=== PATIENT | male | born 1945 | race American Indian/Alaskan Native ===

== ENCOUNTER 2017-11-27 13:05 | Emergency (ER) | payer MEDICARE ==
[2017-11-27 14:17] VITALS: BP 159/64
[2017-11-27] MEDS ORDERED: BOOSTRIX IM ONE (15:11)
--- NOTE | 2017-11-27 15:11 | Emergency Department Report ---
- General Chief complaint: Wound/Laceration Stated complaint: SORE/ULCER Time Seen by Provider: 11/27/17 14:49 Source: patient Mode of arrival: Ambulatory Limitations: No Limitations - History of Present Illness Initial comments: This is a 72-year-old male nontoxic, well nourished in appearance, no acute signs of distress presents to the ED with c/o of left lower leg redness with pain. Patient stated that he is a insect bite occurred and patient developed this. Patient denies any fever, chills, nausea, vomiting, chest pain, shortness of breath, headache, stiff neck, body aches. Patient that he is not up-to-date with tetanus. Denies any swelling, pus or drainage. Denies any allergies. MD complaint: insect bite/sting -: days(s) (3) Tetanus Up to Date: no Severity: mild Severity scale (0 -10): 3 Quality: aching Consistency: constant Improves with: none Worsens with: none Associated symptoms: denies other symptoms Treatments Prior to Arrival: none - Related Data Home Medications Medication Instructions Recorded Confirmed Last Taken Aspirin EC [Aspirin Enteric Coated 325 mg PO QDAY 12/29/14 12/29/14 12/29/14 TAB] 325mg Lisinopril 40 mg PO DAILY 12/29/14 12/29/14 12/27/14 40mg Metformin HCl [Metformin] 1,000 mg PO BID 12/29/14 12/29/14 12/27/14 1000mg Metoprolol Tartrate 25 mg PO DAILY 12/29/14 12/29/14 12/26/14 25mg Simvastatin 40 mg PO QHS 12/29/14 12/29/14 12/26/14 40mg Previous Rx's Medication Instructions Recorded Last Taken Type Ibuprofen [Motrin] 600 mg PO Q8H PRN #30 tablet 11/27/17 Unknown Rx Sulfamethoxazole/Trimethoprim 1 each PO BID #14 tablet 11/27/17 Unknown Rx [Bactrim DS TAB] Allergies Allergy/AdvReac Type Severity Reaction Status Date / Time No Known Allergies Allergy Verified 12/29/14 06:21 Abscess Boil HPI - HPI Chief Complaint: Wound/Laceration Stated Complaint: SORE/ULCER Time Seen by Provider: 11/27/17 14:49 Home Medications: Home Medications Medication Instructions Recorded Confirmed Last Taken Aspirin EC [Aspirin Enteric Coated 325 mg PO QDAY 12/29/14 12/29/14 12/29/14 TAB] 325mg Lisinopril 40 mg PO DAILY 12/29/14 12/29/14 12/27/14 40mg Metformin HCl [Metformin] 1,000 mg PO BID 12/29/14 12/29/14 12/27/14 1000mg Metoprolol Tartrate 25 mg PO DAILY 12/29/14 12/29/14 12/26/14 25mg Simvastatin 40 mg PO QHS 12/29/14 12/29/14 12/26/14 40mg Previous Rx's Medication Instructions Recorded Last Taken Type Ibuprofen [Motrin] 600 mg PO Q8H PRN #30 tablet 11/27/17 Unknown Rx Sulfamethoxazole/Trimethoprim 1 each PO BID #14 tablet 11/27/17 Unknown Rx [Bactrim DS TAB] Allergies/Adverse Reactions: Allergies Allergy/AdvReac Type Severity Reaction Status Date / Time No Known Allergies Allergy Verified 12/29/14 06:21 ED Review of Systems ROS: Stated complaint: SORE/ULCER Other details as noted in HPI Constitutional: denies: chills, fever Eyes: denies: eye pain, eye discharge, vision change ENT: denies: ear pain, throat pain Respiratory: denies: cough, shortness of breath, wheezing Cardiovascular: denies: chest pain, palpitations Endocrine: no symptoms reported Gastrointestinal: denies: abdominal pain, nausea, diarrhea Genitourinary: denies: urgency, dysuria Musculoskeletal: denies: back pain, joint swelling, arthralgia Skin: denies: rash, lesions Neurological: denies: headache, weakness, paresthesias Psychiatric: denies: anxiety, depression Hematological/Lymphatic: denies: easy bleeding, easy bruising ED Past Medical Hx - Past Medical History Previous Medical History?: Yes Hx Hypertension: Yes - Surgical History Past Surgical History?: Yes Hx Coronary Stent: Yes (2003) Hx Open Heart Surgery: Yes Additional Surgical History: inguinal hernia repair - Social History Smoking Status: Former Smoker Substance Use Type: Marijuana - Medications Home Medications: Home Medications Medication Instructions Recorded Confirmed Last Taken Type Aspirin EC [Aspirin Enteric Coated 325 mg PO QDAY 12/29/14 12/29/14 12/29/14 History TAB] 325mg Lisinopril 40 mg PO DAILY 12/29/14 12/29/14 12/27/14 History 40mg Metformin HCl [Metformin] 1,000 mg PO BID 12/29/14 12/29/14 12/27/14 History 1000mg Metoprolol Tartrate 25 mg PO DAILY 12/29/14 12/29/14 12/26/14 History 25mg Simvastatin 40 mg PO QHS 12/29/14 12/29/14 12/26/14 History 40mg Ibuprofen [Motrin] 600 mg PO Q8H PRN #30 tablet 11/27/17 Unknown Rx Sulfamethoxazole/Trimethoprim 1 each PO BID #14 tablet 11/27/17 Unknown Rx [Bactrim DS TAB] ED Physical Exam - General Limitations: No Limitations General appearance: alert, in no apparent distress - Head Head exam: Present: atraumatic, normocephalic - Eye Eye exam: Present: normal appearance - ENT ENT exam: Present: mucous membranes moist - Neck Neck exam: Present: normal inspection - Respiratory Respiratory exam: Present: normal lung sounds bilaterally. Absent: respiratory distress - Cardiovascular Cardiovascular Exam: Present: regular rate, normal rhythm. Absent: systolic murmur, diastolic murmur, rubs, gallop - GI/Abdominal GI/Abdominal exam: Present: soft, normal bowel sounds - Rectal Rectal exam: Present: deferred - Extremities Exam Extremities exam: Present: normal inspection, full ROM, tenderness, normal capillary refill. Absent: joint swelling - Expanded Lower Extremity Exam Left Hip exam: Present: normal inspection, full ROM. Absent: tenderness, swelling Upper Leg exam: Present: normal inspection, full ROM. Absent: tenderness, swelling Knee exam: Present: normal inspection, full ROM. Absent: tenderness, swelling Lower Leg exam: Present: normal inspection, full ROM, tenderness, erythema. Absent: swelling, abrasion, laceration, ecchymosis, deformity, crepidus, dislocation, palpable cord, Rogers's sign Ankle exam: Present: normal inspection, full ROM. Absent: tenderness, swelling Foot/Toe exam: Present: normal inspection, full ROM. Absent: tenderness, swelling Neuro vascular tendon exam: Present: no vascular compromise. Absent: pulse deficit, abnormal cap refill, motor deficit, sensory deficit, tendon deficit, extremity cold to touch, pallor, abnormal 2-point discrimination, decreased fine /light touch, foot drop, peroneal nerve deficit, significant pain with passive ROM of distal joint Gait: Positive: observed and limited by pain 1 - 1 cm circular redness with tenderness to touch. No signs of pus or drainage. - Back Exam Back exam: Present: normal inspection - Neurological Exam Neurological exam: Present: alert, oriented X3 - Psychiatric Psychiatric exam: Present: normal affect, normal mood - Skin Skin exam: Present: warm, dry, intact, normal color. Absent: rash ED Course Vital Signs 11/27/17 14:13 Temperature 98 F Pulse Rate 65 Respiratory 18 Rate Blood Pressure 159/64 O2 Sat by Pulse 99 Oximetry - Reevaluation(s) Reevaluation #1: 11/27/17 15:12 Patient is speaking in full sentences with no signs of distress noted. ED Medical Decision Making - Medical Decision Making This is a 72-year-old male that presents with cellulitis. Patient is stable and was examined by me. There is no induration, fluctuance. No signs of abscess formation. The area has been outlined with a permanent marker and patient was instructed to observe symptoms of increased redness or swelling and to return to the ER if this does occur. I will discharge patient with Bactrim. Patient did receive a tetanus booster in the ER. Patient was referred to Follow-up with a primary care doctor in 3-5 days or if symptoms worsen and continue return to emergency room as soon as possible. At time of discharge, the patient does not seem toxic or ill in appearance. No acute signs of distress noted. Patient agrees to discharge treatment plan of care. No further questions noted by the patient. Critical care attestation.: If time is entered above; I have spent that time in minutes in the direct care of this critically ill patient, excluding procedure time. ED Disposition Clinical Impression: Cellulitis Qualifiers: Site of cellulitis: extremity Site of cellulitis of extremity: lower extremity Laterality: left Qualified Code(s): L03.116 - Cellulitis of left lower limb Disposition: - TO HOME OR SELFCARE Is pt being admited?: No Does the pt Need Aspirin: No Condition: Stable Instructions: Cellulitis (ED) Additional Instructions: Follow-up with a primary care doctor in 3-5 days or if symptoms worsen and continue return to emergency room as soon as possible. Prescriptions: Ibuprofen [Motrin] 600 mg PO Q8H PRN #30 tablet PRN Reason: Pain Sulfamethoxazole/Trimethoprim [Bactrim DS TAB] 1 each PO BID #14 tablet Referrals: PRIMARY CARE, [Primary Care Provider] - 3-5 Days ROGER COFFEY MD [Staff Physician] - 3-5 Days [facility] [Outside] - 3-5 Days [facility] [Outside] - 3-5 Days Forms: Work/School Release Form(ED)
== END 2017-11-27 15:34 | disposition home or self-care (01) ==
LOC: ED 13:05
DX: S80.862A Insect bite (nonvenomous), left lower leg, initial encounter (principal); L03.116 Cellulitis of left lower limb; I10 Essential (primary) hypertension; F12.10 Cannabis abuse, uncomplicated; Z87.891 Personal history of nicotine dependence; Z79.82 Long term (current) use of aspirin
CPT/HCPCS: 90471; 90715; 99282

== ENCOUNTER 2018-07-10 03:49 | Emergency (ER) | payer MEDICARE ==
[2018-07-10] MEDS ORDERED: CATAPRES PO ONE (04:32)
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
[2018-07-10 05:21] VITALS: BP 161/81
== END 2018-07-10 05:38 | disposition home or self-care (01) ==
LOC: ED 03:49
DX: T21.25XA Burn of second degree of buttock, initial encounter (principal); T65.91XA Toxic effect of unspecified substance, accidental (unintentional), initial encounter; T21.65XA Corrosion of second degree of buttock, initial encounter; I10 Essential (primary) hypertension; E11.9 Type 2 diabetes mellitus without complications; Z79.84 Long term (current) use of oral hypoglycemic drugs; Z87.891 Personal history of nicotine dependence; Z87.74 Personal history of (corrected) congenital malformations of heart and circulatory system; Y93.89 Activity, other specified; Y92.89 Other specified places as the place of occurrence of the external cause; Y99.8 Other external cause status

== ENCOUNTER 2018-10-23 01:59 | Emergency (ER) | payer MEDICARE ==
[2018-10-23] MEDS ORDERED: DECADRON IM ONE (04:53)
[2018-10-23] MEDS ORDERED: TORADOL IM ONE (04:53)
--- NOTE | 2018-10-23 04:59 | Emergency Department Report ---
ED Extremity Problem HPI - General Chief complaint: Extremity Injury, Lower Stated complaint: RT LEG PAIN Source: patient Mode of arrival: Ambulatory Limitations: No Limitations - History of Present Illness Initial comments: 73-year-old male presents to ED with complaint of sciatica pain. Patient states he was diagnosed with sciatica one month ago by his PCP. States pain originates in the right buttocks, radiates down the entire leg and also around into the groin. Patient denies any leg swelling. Reports associated intermittent numbness of the toes. There is pain is worse when going from sitting to standing, also worse with walking. Pain is better with laying down. Patient states medications given to him by his PCP are not helping (meloxicam, flexeril, ibuprofen). States he has a follow-up appointment October 31. Patient denies any urinary or bowel incontinence, denies any leg weakness. MD Complaint: extremity pain -: month(s) (1) Location: right, lower extremity Radiation: distal Quality: sharp Consistency: intermittent Improves with: immobilization, rest Worsens with: walking Associated Symptoms: denies: chest pain, shortness of breath, fever - Related Data Home Medications Medication Instructions Recorded Confirmed Last Taken Aspirin EC 325 mg PO QDAY 12/29/14 12/29/14 12/29/14 325mg Lisinopril 40 mg PO DAILY 12/29/14 12/29/14 12/27/14 40mg Metformin HCl [Metformin] 1,000 mg PO BID 12/29/14 12/29/14 12/27/14 1000mg Metoprolol Tartrate 25 mg PO DAILY 12/29/14 12/29/14 12/26/14 25mg Simvastatin 40 mg PO QHS 12/29/14 12/29/14 12/26/14 40mg Previous Rx's Medication Instructions Recorded Last Taken Type Ibuprofen [Motrin] 600 mg PO Q8H PRN #30 tablet 11/27/17 Unknown Rx Sulfamethoxazole/Trimethoprim 1 each PO BID #14 tablet 11/27/17 Unknown Rx [Bactrim DS TAB] Silver Sulfadiazine [Silvadene] 20 gm TP BID #20 cream..g. 07/10/18 Unknown Rx cephALEXin [Keflex] 500 mg PO Q8HR #30 cap 07/10/18 Unknown Rx methOCARBAMOL [Robaxin TAB] 500 mg PO Q8HR PRN #20 tablet 10/23/18 Unknown Rx predniSONE [Deltasone] 50 mg PO QDAY #5 tab 10/23/18 Unknown Rx traMADol [Ultram] 50 mg PO Q6HR PRN #7 tablet 10/23/18 Unknown Rx Allergies Allergy/AdvReac Type Severity Reaction Status Date / Time No Known Allergies Allergy Verified 12/29/14 06:21 ED Review of Systems ROS: Stated complaint: RT LEG PAIN Other details as noted in HPI Comment: All other systems reviewed and negative Constitutional: denies: chills, fever Respiratory: denies: shortness of breath Cardiovascular: denies: chest pain Genitourinary: other (denies incontinence) Musculoskeletal: as per HPI. denies: back pain Neurological: paresthesias ED Past Medical Hx - Past Medical History Previous Medical History?: Yes Hx Hypertension: Yes Hx Diabetes: Yes - Surgical History Past Surgical History?: Yes Hx Coronary Stent: Yes (2003) Hx Open Heart Surgery: Yes (tripple bypass) Additional Surgical History: inguinal hernia repair - Social History Smoking Status: Never Smoker Substance Use Type: Alcohol - Medications Home Medications: Home Medications Medication Instructions Recorded Confirmed Last Taken Type Aspirin EC 325 mg PO QDAY 12/29/14 12/29/14 12/29/14 History 325mg Lisinopril 40 mg PO DAILY 12/29/14 12/29/14 12/27/14 History 40mg Metformin HCl [Metformin] 1,000 mg PO BID 12/29/14 12/29/14 12/27/14 History 1000mg Metoprolol Tartrate 25 mg PO DAILY 12/29/14 12/29/14 12/26/14 History 25mg Simvastatin 40 mg PO QHS 12/29/14 12/29/14 12/26/14 History 40mg Ibuprofen [Motrin] 600 mg PO Q8H PRN #30 tablet 11/27/17 Unknown Rx Sulfamethoxazole/Trimethoprim 1 each PO BID #14 tablet 11/27/17 Unknown Rx [Bactrim DS TAB] Silver Sulfadiazine [Silvadene] 20 gm TP BID #20 cream..g. 07/10/18 Unknown Rx cephALEXin [Keflex] 500 mg PO Q8HR #30 cap 07/10/18 Unknown Rx methOCARBAMOL [Robaxin TAB] 500 mg PO Q8HR PRN #20 tablet 10/23/18 Unknown Rx predniSONE [Deltasone] 50 mg PO QDAY #5 tab 10/23/18 Unknown Rx traMADol [Ultram] 50 mg PO Q6HR PRN #7 tablet 10/23/18 Unknown Rx ED Physical Exam - General Limitations: No Limitations General appearance: alert, in no apparent distress - Head Head exam: Present: atraumatic, normocephalic - Eye Eye exam: Present: normal appearance - ENT ENT exam: Present: mucous membranes moist - Neck Neck exam: Present: normal inspection - Respiratory Respiratory exam: Present: normal lung sounds bilaterally. Absent: respiratory distress - Cardiovascular Cardiovascular Exam: Present: regular rate, normal rhythm - GI/Abdominal GI/Abdominal exam: Present: soft. Absent: distended, tenderness - Extremities Exam Extremities exam: Present: other (tenderness in the right sciatic notch; positive straight leg raise on the right). Absent: pedal edema, calf tenderness - Neurological Exam Neurological exam: Present: alert, oriented X3 - Psychiatric Psychiatric exam: Present: normal affect, normal mood - Skin Skin exam: Present: warm, dry, intact, normal color ED Course Vital Signs 10/23/18 02:06 Temperature 97.4 F L Pulse Rate 79 Respiratory 14 Rate Blood Pressure 205/100 O2 Sat by Pulse 100 Oximetry Critical care attestation.: If time is entered above; I have spent that time in minutes in the direct care of this critically ill patient, excluding procedure time. ED Disposition Clinical Impression: Sciatica Disposition: DC-01 TO HOME OR SELFCARE Is pt being admited?: No Condition: Stable Instructions: Lumbar Radiculopathy (ED) Prescriptions: predniSONE [Deltasone] 50 mg PO QDAY #5 tab methOCARBAMOL [Robaxin TAB] 500 mg PO Q8HR PRN #20 tablet PRN Reason: Muscle Spasm traMADol [Ultram] 50 mg PO Q6HR PRN #7 tablet PRN Reason: Pain Referrals: CARMENCITA BARBOUR MD [Staff Physician] - 3-5 Days PRIMARY CAREMD [Referring] - 3-5 Days Time of Disposition: 05:02
[2018-10-23 07:03] VITALS: BP 135/82
== END 2018-10-23 07:03 | disposition home or self-care (01) ==
LOC: ED 01:59
DX: M54.40 Lumbago with sciatica, unspecified side (principal); I10 Essential (primary) hypertension; E11.9 Type 2 diabetes mellitus without complications
CPT/HCPCS: 96372; 99282; J1100; J1885

== ENCOUNTER 2021-01-16 09:48 | Outpatient (CLI) | payer MEDICARE ==
[~2021-01-16 09:48] MED LIST: REGADENOSON 0.4 MG/5 ML INJ IV ONE
[2021-01-16] MEDS ORDERED: REGADENOSON 0.4 MG/5 ML INJ IV ONE (11:17)
--- NOTE | 2021-01-17 17:31 | Treadmill Report ---
DATE OF SERVICE: 01/16/2021 NUCLEAR PERFUSION SCAN REFERRING PHYSICIAN: Dr. Nuñez. PROTOCOL: The patient was assessed in postoperative state, given 10 mCi of technetium at rest. The patient had rest imaging. The patient underwent Lexiscan stress test per standard protocol. At peak stress, the patient given 26 mCi technetium. Shortly thereafter, the patient had stress imaging. Raw imaging reveals mild GI artifact, no significant motion effect. SPECT imaging examined carefully in horizontal long axis, vertical long axis, short axis views. There is normal homogeneous uptake of radioisotope in all port segments. There is a moderate-sized fixed lateral defect with edmond-infarct ischemia. Low normal LV function at 45%. No TID. CONCLUSIONS: 1. Abnormal nuclear stress test with a moderate-sized, mostly fixed lateral wall defect, questionable prior NH with edmond-infarct ischemia. 2. Mild LV dysfunction with calculated ejection fraction of 45%. 3. Clinical correlation is suggested. TID: [id number] RECEIPT: [id number] NII/VIVIAN/DICK
== END 2021-01-16 09:49 | disposition home or self-care (01) ==
LOC: CARD 09:48
PROVIDERS: ATTEND Internal Medicine Cardiovascular Disease
DX: I25.10 Atherosclerotic heart disease of native coronary artery without angina pectoris (principal); R06.00 Dyspnea, unspecified; I10 Essential (primary) hypertension; Z95.1 Presence of aortocoronary bypass graft
CPT/HCPCS: 78452; 93017; A9502; J2785

== ENCOUNTER 2021-02-14 08:23 | Outpatient (CLI) | payer MEDICARE, MEDICAID ==
[2021-02-14 08:59] LABS: ABG Base Excess -3.2 mmol/L (-2.0-3.0); ABG HCO3 18.8 mmol/L (20.0-26.0); ABG Methemoglobin 0.3 % (0.0-1.5); ABG Oxygen Saturation 98.1 % (95.0-99.0); ABG PCO2 26.4 mm Hg; ABG PH 7.469 pH Units (7.350-7.450); ABG PO2 106.7 mm Hg (80.0-90.0)
[2021-02-14 09:19] LABS: Hematocrit 39.8 % (35.5-45.6); Hemoglobin 12.5 gm/dl (11.8-15.2); Mean Corpuscular HGB Conc 32 % (32-34); Mean Corpuscular Volume 97 fl (84-94); Platelet Count 164 K/mm3 (140-440); Red Blood Count 4.12 M/mm3 (3.65-5.03); Red Cell Distribution Width 16.4 % (13.2-15.2)
--- NOTE | 2021-02-14 09:33 | XRay Report ---
CHEST 2 VIEWS INDICATION / CLINICAL INFORMATION: Shortness of breath, heart failure.. COMPARISON: None available. FINDINGS: SUPPORT DEVICES: None. HEART / MEDIASTINUM: No significant abnormality. LUNGS / PLEURA: No significant pulmonary or pleural abnormality. No pneumothorax. ADDITIONAL FINDINGS: Postsurgical changes following median sternotomy and suspected coronary artery b ypass surgery. IMPRESSION: 1. No acute findings. Signer Name: Javier King MD Signed: 02/14/2021 9:28 AM Workstation Name: [id number]
[2021-02-14 09:43] LABS: Alanine Aminotransferase 67 units/L (7-56); Albumin 4.2 g/dL (3.9-5); BUN/Creatinine Ratio 19; Blood Urea Nitrogen 17 mg/dL (9-20); Calcium 9.1 mg/dL (8.4-10.2); Chol/HDL Ratio 3.25 %; HDL Cholesterol 58 mg/dL (40-59); Hemolysis Index 6; LDL Cholesterol,Direct 129 mg/dL (50-130)
--- NOTE | 2021-02-14 10:28 | Cat Scan Report ---
CT chest with contrast INDICATION : Shortest of breath. TECHNIQUE: 100 mL of intravenous contrast administered. All CT scans at this location are performed using CT dose reduction for ALARA by means of automated exposure control. COMPARISON: Chest radiograph performed earlier the same day. FINDINGS: Filling defects within the segmental bilateral lower lobes and left upper lobe pulmonary arteries are compatible with pulmonary emboli. There is a 7 mm right upper lobe pulmonary nodule. No focal pulmonary consolidation or edema. Slight flattening of the interventricular septum which can be seen in the setting of right heart stra in. Postsurgical changes following coronary artery bypass graft surgery. No evidence of pericardial e ffusion. No mediastinal or axillary lymphadenopathy. Osseous structures show no evidence acute fracture or aggressive osseous destructive lesion. Limited evaluation of the upper abdomen is unremarkable, aside from a partially visualized left upper pole renal cyst.. IMPRESSION: Segmental pulmonary emboli within the bilateral lower lobes and left upper lobe. There is a 7 mm right upper lobe pulmonary nodule. Recommend follow-up CT in 6-12 months. These findings and recommendations were discussed with Dr. Ramey at 09:22 on 02/14/2021. Signer Name: Javier King MD Signed: 02/14/2021 10:23 AM Workstation Name: [id number]
== END 2021-02-14 08:24 | disposition home or self-care (01) ==
LOC: CT 08:23
PROVIDERS: ATTEND Internal Medicine
DX: R91.1 Solitary pulmonary nodule (principal); I50.9 Heart failure, unspecified; I51.9 Heart disease, unspecified; E11.9 Type 2 diabetes mellitus without complications; K21.9 Gastro-esophageal reflux disease without esophagitis; I11.0 Hypertensive heart disease with heart failure; N28.1 Cyst of kidney, acquired
CPT/HCPCS: 36415; 71046; 71275; 80053; 80061; 82803; 82962; 84436; 84443; 85027; Q9967

== ENCOUNTER 2021-10-01 04:29 | Emergency (ER) | payer MEDICARE ==
--- NOTE | 2021-10-01 06:41 | XRay Report ---
ABDOMEN 2 VIEWS INDICATION / CLINICAL INFORMATION: Abdominal pain for 3 days. COMPARISON: None available. FINDINGS: TUBES / LINES: None. BOWEL GAS PATTERN: The colon contains a large amount of stool. No significant bowel dilatation. FREE AIR / EXTRALUMINAL GAS: None seen. ADDITIONAL FINDINGS: No significant additional findings. CHEST: Visualized chest shows no significant abnormality. IMPRESSION: Findings suggestive of constipation without other acute findings. Signer Name: Redd Quintana MD Signed: 10/01/2021 6:36 AM Workstation Name: [id number]
[2021-10-01 07:33] LABS: Basophils # (Auto) 0.1 K/mm3 (0.0-0.1); Basophils % (Auto) 1.2 % (0.0-1.8); Eosinophils # (Auto) 0.1 K/mm3 (0.0-0.4); Eosinophils % (Auto) 1.7 % (0.0-4.3); Hematocrit 45.5 % (35.5-45.6); Hemoglobin 15.2 gm/dl (11.8-15.2); Lymphocytes % (Auto) 38.1 % (13.4-35.0); Mean Corpuscular HGB Conc 33 % (32-34); Mean Corpuscular Volume 90 fl (84-94); Monocytes # (Auto) 0.4 K/mm3 (0.0-0.8); Monocytes % (Auto) 8.2 % (0.0-7.3); Platelet Count 127 K/mm3 (140-440); Red Blood Count 5.05 M/mm3 (3.65-5.03)
[2021-10-01] MEDS ORDERED: PANTOPRAZOLE 40 MG TAB PO ONE (11:31)
[2021-10-01] MEDS ORDERED: ACETAMINOPHEN 325 MG TAB PO ONE (11:31)
[2021-10-01] MEDS ORDERED: METOCLOPRAMIDE 10 MG TAB PO ONE (11:31)
--- NOTE | 2021-10-01 11:33 | Emergency Department Report ---
ED General Adult HPI - General Chief complaint: Pain General Stated complaint: Body is burning Time Seen by Provider: 10/01/21 11:16 Source: patient, RN notes reviewed, old records reviewed Mode of arrival: Wheelchair Limitations: No Limitations - History of Present Illness Initial comments: The patient was evaluated in the emergency department for symptoms described in the history of present illness. He/she was evaluated in the context of the global COVID-19 pandemic, which necessitated consideration that the patient might be at risk for infection with the virus that causes COVID-19. Institutional protocols and algorithms that pertain to the evaluation of patients at risk for COVID-19 are in a state of rapid change based on information released by regulatory bodies including the CDC and federal and state organizations. These policies and algorithms were followed during the patient's care in the emergency department. Please note that these policies, procedures and recommendations changed on a rapid basis. This is a 76-year-old gentleman who presents to the department today with family member, with a complaint of total body pain and burning, which has been present for weeks. He endorses a mild headache, which is not sudden or thunderclap in nature, not maximal in intensity, not described as the worst headache of the life. The headache is not associated with visual loss, temporal pain, or jaw claudication. Patient denies new/different cough, anterior chest pain, shortness of breath, and denies vomiting, diaphoresis. He denies hematemesis and bright red blood per rectum. He endorsed nonspecific abdominal cramping, and burning aching pain in his upper and lower extremity joints. Current medications include Flomax, finasteride, omeprazole, lisinopril, metoprolol, pravastatin, insulin The patient's past medical history is significant for type 2 diabetes, hypertension, hyperlipidemia, prostate/bladder problems, GERD, on PPI, remote CABG, with CAD. Also has had issues with anorexia since 2020, and has been followed up by outpatient GI. Also has a history of pulmonary embolism, for which he was treated with 3 months of anticoagulation. -: Gradual, days(s), week(s), month(s) Location: head, abdomen, left, right, upper extremity, lower extremity Quality: other (For history of present) Consistency: other (Per history of present illness) Improves with: other (Patient does not describe improving factors) Worsens with: other (Does not describe exacerbating factors) - Related Data Home Medications Medication Instructions Recorded Confirmed Last Taken lisinopriL [Lisinopril] 40 mg PO DAILY 12/29/14 02/14/21 02/14/21 08:00 Insulin NPH/Regular [NovoLIN 70/30] 15 unit SQ BIDDIAB 02/14/21 02/14/21 02/13/21 21:00 Pravastatin [Pravachol] 40 mg PO QHS 02/14/21 02/14/21 02/13/21 21:00 Amlodipine Besylate [Norvasc] 2.5 mg PO QDAY 02/15/21 02/15/21 02/14/21 08:00 Lactulose 20 gm PO QDAY 02/15/21 02/15/21 Unknown Metformin HCl [metFORMIN] 1,000 mg PO BID 02/15/21 02/15/21 Unknown Metoprolol Xl [Metoprolol 25 mg PO QDAY 02/15/21 02/15/21 Unknown SUCCINATE ER TAB] Omeprazole 40 mg PO QAM 02/15/21 02/15/21 Unknown Tamsulosin [Flomax] 0.4 mg PO QDAY 02/15/21 02/15/21 Unknown megestroL [Megestrol] 400 mg PO BID 02/15/21 02/15/21 Unknown Previous Rx's Medication Instructions Recorded Last Taken Type Apixaban [Eliquis starter pack] 5 mg PO BID #74 tab.ds.pk 02/19/21 Unknown Rx Magnesium Oxide 400 mg PO QDAY #30 tab 10/01/21 Unknown Rx polyethylene glycoL 3350 [Miralax 17 gm PO QDAY #30 packet 10/01/21 Unknown Rx 3350] Allergies Allergy/AdvReac Type Severity Reaction Status Date / Time No Known Allergies Allergy Verified 02/14/21 13:41 ED Review of Systems ROS: Stated complaint: SEVERE PAIN IN MID REGION Other details as noted in HPI Constitutional: denies: fever Eyes: denies: eye discharge ENT: denies: congestion Respiratory: denies: cough, shortness of breath Cardiovascular: denies: chest pain Gastrointestinal: abdominal pain. denies: vomiting Genitourinary: denies: dysuria Musculoskeletal: arthralgia, myalgia Neurological: headache, weakness (Chronic generalized weakness) Hematological/Lymphatic: denies: easy bleeding ED Past Medical Hx - Past Medical History Hx Hypertension: Yes Hx Congestive Heart Failure: No Hx Diabetes: Yes Hx Asthma: No Hx COPD: No - Surgical History Hx Coronary Stent: Yes (2003) Hx Open Heart Surgery: Yes (tripple bypass) Additional Surgical History: inguinal hernia repair - Social History Smoking Status: Never Smoker Substance Use Type: None - Medications Home Medications: Home Medications Medication Instructions Recorded Confirmed Last Taken Type lisinopriL [Lisinopril] 40 mg PO DAILY 12/29/14 02/14/21 02/14/21 08:00 History Insulin NPH/Regular [NovoLIN 70/30] 15 unit SQ BIDDIAB 02/14/21 02/14/21 02/13/21 21:00 History Pravastatin [Pravachol] 40 mg PO QHS 02/14/21 02/14/21 02/13/21 21:00 History Amlodipine Besylate [Norvasc] 2.5 mg PO QDAY 02/15/21 02/15/21 02/14/21 08:00 History Lactulose 20 gm PO QDAY 02/15/21 02/15/21 Unknown History Metformin HCl [metFORMIN] 1,000 mg PO BID 02/15/21 02/15/21 Unknown History Metoprolol Xl [Metoprolol 25 mg PO QDAY 02/15/21 02/15/21 Unknown History SUCCINATE ER TAB] Omeprazole 40 mg PO QAM 02/15/21 02/15/21 Unknown History Tamsulosin [Flomax] 0.4 mg PO QDAY 02/15/21 02/15/21 Unknown History megestroL [Megestrol] 400 mg PO BID 02/15/21 02/15/21 Unknown History Apixaban [Eliquis starter pack] 5 mg PO BID #74 tab.ds.pk 02/19/21 Unknown Rx Magnesium Oxide 400 mg PO QDAY #30 tab 10/01/21 Unknown Rx polyethylene glycoL 3350 [Miralax 17 gm PO QDAY #30 packet 10/01/21 Unknown Rx 3350] ED Physical Exam - General Limitations: No Limitations General appearance: alert, in no apparent distress - Head Head exam: Present: atraumatic, normocephalic, other (There is no temporal tenderness) - Eye Eye exam: Present: normal appearance, EOMI. Absent: scleral icterus, conjunctival injection, nystagmus - ENT ENT exam: Present: normal exam, normal orophraynx, mucous membranes moist, normal external ear exam - Neck Neck exam: Present: normal inspection, full ROM. Absent: tenderness, meningismus - Respiratory Respiratory exam: Present: normal lung sounds bilaterally. Absent: respiratory distress, wheezes, rales, rhonchi, stridor, decreased breath sounds - Cardiovascular Cardiovascular Exam: Present: regular rate, normal rhythm, normal heart sounds. Absent: bradycardia, tachycardia, irregular rhythm, systolic murmur, diastolic murmur, rubs, gallop - GI/Abdominal GI/Abdominal exam: Present: soft. Absent: distended, tenderness, guarding, rebound, rigid, pulsatile mass - Rectal Rectal exam: Present: deferred - Extremities Exam Extremities exam: Present: normal inspection, full ROM, normal capillary refill, other (2+ pulses noted in the bilateral upper and lower extremities. There is no palpable cord. negative Homans sign. Muscular compartments are soft. The pelvis is stable.). Absent: calf tenderness - Back Exam Back exam: Present: normal inspection. Absent: tenderness, CVA tenderness (R), CVA tenderness (L), paraspinal tenderness, vertebral tenderness - Neurological Exam Neurological exam: Present: alert, oriented X3, reflexes normal, other (No facial droop. Tongue midline. Extraocular movements intact bilaterally. Facial sensation intact to light touch in V1, V2, V3 distribution bilaterally. 5 and a 5 strength in 4 extremities. Sensation intact to light touch in 4 extremities.). Absent: motor sensory deficit - Psychiatric Psychiatric exam: Present: normal affect, normal mood - Skin Skin exam: Present: warm, dry, intact, normal color. Absent: rash ED Course Vital Signs 10/01/21 10/01/21 10/01/21 05:45 12:35 12:47 Temperature 97.8 F 98.6 F Pulse Rate 79 72 Respiratory 16 17 17 Rate Blood Pressure 178/101 Blood Pressure 202/100 [Left] O2 Sat by Pulse 100 98 98 Oximetry 10/01/21 10/01/21 13:32 16:07 Temperature 98.6 F Pulse Rate 89 72 Respiratory 20 Rate Blood Pressure Blood Pressure 177/95 [Left] O2 Sat by Pulse 98 Oximetry - Reevaluation(s) Reevaluation #1: 10/01/21 13:11 Differential diagnosis, include but not limited to: GERD, gastritis, hiatal hernia, obstruction, constipation, obstipation, AAA, volvulus, neuropathic pain Migraine headache, tension headache, cluster Assessment and plan: 76-year-old gentleman with nonspecific abdominal cramping, and nonspecific extremity discomfort, with no abdominal tenderness, rebound or guarding, no right upper quadrant tenderness, saturating well on room air, no focal pulmonary findings, do not clinically suspect pneumonia, or cholecystitis, with probable chronic neuropathic pain as well as chronic hypertension. Multiple and repeat discussions were had with patient and family member, articulating that condition does not likely represent a dangerous life-t hreatening emergency medical condition present today, and that we will likely not elucidate the etiology of the patient's presentation. I also discussed with the patient and daughter at the bedside that we will be very happy to treat his chronic symptoms, but articulated that his diagnostic work-up is unlikely to demonstrate an acutely emergent condition today. Hypertension is chronic. We will treat the patient's symptoms supportively and symptomatically. CT scan abdomen pelvis reviewed and appreciated. Do not clinically suspect pneumonia or cholecystitis. Laboratory studies pending. Urinalysis pending. Neurologic examination nonfocal, has a GCS of 15. There is no temporal pain or tenderness, no jaw claudication \However, we will obtain noncontrast CT scan of the brain. Reassess after initial data points 10/01/21 13:13 Symptoms chronic and present for days/weeks/months. EKG unchanged from prior. Troponin negative x1, acute CO is excluded. Cardiovascular risk factor profile is reviewed and appreciated, however, given duration and chronicity of symptoms, acute coronary syndrome is very unlikely 10/01/21 14:04 Laboratory studies demonstrate new onset transaminitis/hepatitis. Right upper quadrant ultrasound ordered. Acute hepatitis panel, acetaminophen level ordered. CT scan of the brain negative for acute 10/01/21 16:33 Final reassessment. Urinalysis not consistent with UTI. Right upper quadrant ultrasound negative for emergent findings. Patient is found to have transaminitis, and evidence of hepatitis C. I have had multiple and extensive discussions with patient and daughter at the bedside. Given history of GERD, hold NSAIDs. Given advanced age, poor mobility, risk of fall, hold sedating medications, such as tramadol, opioids, and gabapentin. Minimize Tylenol. Reportedly has been on gabapentin in the past as per daughter. Recommend outpatient follow-up with primary care and/or GI for transaminitis and hepatitis C. Return precautions are reviewed. All questions answered. Patient and family asking for discharge at this time ED Medical Decision Making - Lab Data Result diagrams: 10/01/21 07:13 10/01/21 11:41 Vital Signs 10/01/21 10/01/21 10/01/21 05:45 12:35 12:47 Temperature 97.8 F 98.6 F Pulse Rate 79 72 Respiratory 16 17 17 Rate Blood Pressure 178/101 Blood Pressure 202/100 [Left] O2 Sat by Pulse 100 98 98 Oximetry Lab Results 10/01/21 10/01/21 10/01/21 Range/Units 07:13 11:41 11:41 WBC 5.2 (4.5-11.0) K/mm3 RBC 5.05 H (3.65-5.03) M/mm3 Hgb 15.2 (11.8-15.2) gm/dl Hct 45.5 (35.5-45.6) % MCV 90 (84-94) fl MCH 30 (28-32) pg MCHC 33 (32-34) % RDW 15.0 (13.2-15.2) % Plt Count 127 L (140-440) K/mm3 Lymph % (Auto) 38.1 H (13.4-35.0) % [place] % (Auto) 8.2 H (0.0-7.3) % Eos % (Auto) 1.7 (0.0-4.3) % Baso % (Auto) 1.2 (0.0-1.8) % Lymph # (Auto) 2.0 (1.2-5.4) K/mm3 [place] # (Auto) 0.4 (0.0-0.8) K/mm3 Eos # (Auto) 0.1 (0.0-0.4) K/mm3 Baso # (Auto) 0.1 (0.0-0.1) K/mm3 Seg Neutrophils % 50.8 (40.0-70.0) % Seg Neutrophils # 2.6 (1.8-7.7) K/mm3 PT 15.4 H (12.2-14.9) Sec. INR 1.09 (0.87-1.13) Creatinine 0.8 (0.8-1.3) mg/dL Estimated GFR > 60 ml/min BUN/Creatinine Ratio 26 % Troponin T < 0.010 (0.00-0.029) ng/mL Albumin/Globulin Ratio 1.1 % - EKG Data -: EKG Interpreted by Ga EKG shows normal: sinus rhythm Rate: normal - EKG Data Interpretation: unchanged when compared t 10/01/21 13:06 The EKG is interpreted at 11: 36 Sinus rhythm, rate 66 bpm. Normal axis, normal P wave axis, motion artifact, QTC 4 6 9 ms. This is an abnormal EKG. This is not a STEMI. 10/01/21 13:06 The EKG today appears to be unchanged from prior EKG from February 2021 - Radiology Data Radiology results: pending, report reviewed, image reviewed CT ABDOMEN AND PELVIS WITHOUT CONTRAST, 10/01/2021 INDICATION: Epigastric pain TECHNICAL: Multiple axial CT images of the abdomen and pelvis were acquired without intravenous contrast. Sagittal and coronal reformats were obtained. All CTs at this facility utilize dose reduction techniques including automated exposure control, iterative reconstruction and weight based dosing when appropriate to reduce patient radiation dose to as low as reasonable achievable. COMPARISON: No relevant prior studies are available for comparison. FINDINGS: Lung bases: Limited imaging of the bilateral lung bases demonstrates a 1.4 cm focal area of groundglass opacity at the right medial lung base. ABDOMEN: LIVER/BILE DUCTS: No significant abnormality. GALL BLADDER: The gallbladder is mildly distended without definitive wall thickening or pericholecystic fluid. STOMACH: No significant abnormality. PANCREAS: No significant abnormality. SPLEEN: No significant abnormality. ADRENALS: No significant abnormality. RIGHT KIDNEY / URETER: No significant abnormality. LEFT KIDNEY / URETER: There is a 3.3 cm cyst in the upper pole of the left kidney. AORTA: The abdominal aorta is moderately calcified and ectatic measuring a maximum of 2.8 cm without evidence for aneurysm. SMALL AND LARGE BOWEL: No significant abnormality. APPENDIX: The appendix is visualized and appears normal. PELVIS: REPRODUCTIVE: No significant abnormality. BLADDER: No significant abnormality. FREE FLUID: No free fluid is identified. BONES : No destructive bony lesion is identified. SOFT TISSUES: No significant abnormality IMPRESSION: 1. Mild distention of the gallbladder without CT evidence for cholecystitis. Please correlate with patient's clinical presentation. 2. Additional nonacute findings as detailed above. 3. Patchy opacity at the right medial lung base. This is a nonspecific finding. A dedicated CT of the chest could be performed if clinically indicated. Signer Name: Disha Suresh MD Signed: 10/01/2021 11:38 AM Workstation Name: [id number] ABDOMEN 2 VIEWS INDICATION / CLINICAL INFORMATION: Abdominal pain for 3 days. COMPARISON: None available. FINDINGS: TUBES / LINES: None. BOWEL GAS PATTERN: The colon contains a large amount of stool. No significant bowel dilatation. FREE AIR / EXTRALUMINAL GAS: None seen. ADDITIONAL FINDINGS: No significant additional findings. CHEST: Visualized chest shows no significant abnormality. IMPRESSION: Findings suggestive of constipation without other acute findings. Signer Name: Redd Quintana MD Signed: 10/01/2021 5:36 AM Workstation Name: [id number] Examination: CT of the head without contrast Clinical information: Headache Comparison: No relevant prior study is available for comparison. Technical: Multiple axial CT images of the head were obtained without intravenous contrast. Sagittal and coronal reformats were obtained. All CTs at this facility utilize dose reduction techniques including automated exposure control, iterative reconstruction and weight based dosing when appropriate to reduce patient radiation dose to as low as reasonable achievable. Findings: INTRACRANIAL CONTENTS: There is no CT evidence of acute intracranial hemorrhage or large territorial infarct. There are confluent regions of hypodensity within the periventricular and deep white matter bilaterally. There is mild to moderate generalized atrophy and volume loss. No mass effect or midline shift is identified. SKULL: No acute bony abnormality is visualized. ORBITS: The bilateral orbits and globes appear normal PARANASAL SINUSES / MASTOID AIR CELLS: Paranasal sinuses and mastoid air cells appear clear. Impression: 1. No CT evidence of acute intracranial process. 2. Findings associated with chronic small vessel ischemic disease and atrophy. Signer Name: Disha Suresh MD Signed: 10/01/2021 12:52 PM Workstation Name: [id number] ULTRASOUND ABDOMEN, LIMITED (RIGHT UPPER QUADRANT), 10/01/2021 INDICATION: Right upper quadrant pain. COMPARISON: CT of the abdomen and pelvis, 10/01/2021 FINDINGS: Pancreas: The pancreas is not well visualized. Liver: The liver appears normal in size and echogenicity. Gallbladder: The gallbladder appears mildly distended without evidence of wall thickening or pericholecystic fluid. There is a trace amount of echogenic sludge within the dependent portion. Bile ducts: Common Bile Duct is is enlarged measuring a maximum of 1.0 cm. Free fluid: None. Additional Findings: None. IMPRESSION: 1. Enlargement of the common bile duct without visualized obstructing stone. Review of recent CT of the abdomen and pelvis demonstrates no evidence of radiodense obstructing stone. 2. Trace sludge within the gallbladder. Signer Name: Disha Suresh MD Signed: 10/01/2021 3:19 PM Workstation Name: [id number] Critical care attestation.: If time is entered above; I have spent that time in minutes in the direct care of this critically ill patient, excluding procedure time. ED Disposition Clinical Impression: Headache, Cramps, extremity, Hypertension, Pain, abdominal, nonspecific, Transaminitis, Hypomagnesemia, Constipation, Hepatitis C Disposition: 01 HOME / SELF CARE / HOMELESS Is pt being admited?: No Does the pt Need Aspirin: No Condition: Good Instructions: Hepatitis C, [id number], Hypertension (ED) Additional Instructions: Please drink at least 3 to 4 cups of water per day, and consume plenty of fiber, vegetables and lean protein. Take the magnesium supplementation as directed, or patient may consume foods that have elevated magnesium level, such as banana, avocado, or potato. Avoid consumption of Motrin, ibuprofen, Naprosyn, Aleve, alcohol, tobacco and smoke products. May attempt low-dose Tylenol for physical pain, 325 mg by mouth, [id number], once every 6-8 hours. Patient is not found to have an emergent medical condition present today, but laboratory studies and CT scan abdomen pelvis as well as right upper quadrant ultrasound demonstrated incidental abnormal findings, which will require outpatient follow-up with your primary care doctor or GI physician. Please have your primary care doctor/GI physician contact medical records, to obtain copies of laboratory studies and radiology studies, to follow-up on nonemergent incidental abnormal findings. Recommend follow-up with outpatient primary care or GI within the next 7 to 10 days. Weightbearing as tolerated, physical activities as tolerated. Please return to the emergency room right away with new pain, worsened pain, migration of pain, projectile vomiting, change in mental status, confusion, inability tolerate liquid feeds, new, worsened or different symptoms not present on the initial emergency room evaluation Referrals: TIFFANY AMIN MD [Primary Care Provider] - 3-5 Days [facility] [Provider Group] - 3-5 Days
[2021-10-01 12:38] LABS: INR 1.09 (0.87-1.13)
--- NOTE | 2021-10-01 12:42 | Cat Scan Report ---
CT ABDOMEN AND PELVIS WITHOUT CONTRAST, 10/01/2021 INDICATION: Epigastric pain TECHNICAL: Multiple axial CT images of the abdomen and pelvis were acquired without intravenous contr ast. Sagittal and coronal reformats were obtained. All CTs at this facility utilize dose reduction techniques including automated exposure control, iterative reconstruction and weight based dosing whe n appropriate to reduce patient radiation dose to as low as reasonable achievable. COMPARISON: No relevant prior studies are available for comparison. FINDINGS: Lung bases: Limited imaging of the bilateral lung bases demonstrates a 1.4 cm focal area of groundgla ss opacity at the right medial lung base. ABDOMEN: LIVER/BILE DUCTS: No significant abnormality. GALL BLADDER: The gallbladder is mildly distended without definitive wall thickening or pericholecyst ic fluid. STOMACH: No significant abnormality. PANCREAS: No significant abnormality. SPLEEN: No significant abnormality. ADRENALS: No significant abnormality. RIGHT KIDNEY / URETER: No significant abnormality. LEFT KIDNEY / URETER: There is a 3.3 cm cyst in the upper pole of the left kidney. AORTA: The abdominal aorta is moderately calcified and ectatic measuring a maximum of 2.8 cm without evidence for aneurysm. SMALL AND LARGE BOWEL: No significant abnormality. APPENDIX: The appendix is visualized and appears normal. PELVIS: REPRODUCTIVE: No significant abnormality. BLADDER: No significant abnormality. FREE FLUID: No free fluid is identified. BONES : No destructive bony lesion is identified. SOFT TISSUES: No significant abnormality IMPRESSION: 1. Mild distention of the gallbladder without CT evidence for cholecystitis. Please correlate with mayank peña's clinical presentation. 2. Additional nonacute findings as detailed above. 3. Patchy opacity at the right medial lung base. This is a nonspecific finding. A dedicated CT of the chest could be performed if clinically indicated. Signer Name: Disha Suresh MD Signed: 10/01/2021 12:38 PM Workstation Name: [id number]
[2021-10-01 12:54] LABS: Alanine Aminotransferase 193 units/L (7-56); Albumin 4.1 g/dL (3.9-5); BUN/Creatinine Ratio 26; Blood Urea Nitrogen 21 mg/dL (9-20); Calcium 10.2 mg/dL (8.4-10.2); Hemolysis Index 8
[2021-10-01] MEDS ORDERED: GABAPENTIN 300 MG CAP PO ONE (13:07)
[2021-10-01] MEDS ORDERED: METOPROLOL TARTRATE 50 MG TAB PO ONE (13:07)
--- NOTE | 2021-10-01 13:57 | Cat Scan Report ---
Examination: CT of the head without contrast Clinical information: Headache Comparison: No relevant prior study is available for comparison. Technical: Multiple axial CT images of the head were obtained without intravenous contrast. Sagittal and coronal reformats were obtained. All CTs at this facility utilize dose reduction techniques inc luding automated exposure control, iterative reconstruction and weight based dosing when appropriate to reduce patient radiation dose to as low as reasonable achievable. Findings: INTRACRANIAL CONTENTS: There is no CT evidence of acute intracranial hemorrhage or large territorial infarct. There are confluent regions of hypodensity within the periventricular and deep white matter bilaterally. There is mild to moderate generalized atrophy and volume loss. No mass effect or midline shift is identified. SKULL: No acute bony abnormality is visualized. ORBITS: The bilateral orbits and globes appear normal PARANASAL SINUSES / MASTOID AIR CELLS: Paranasal sinuses and mastoid air cells appear clear. Impression: 1. No CT evidence of acute intracranial process. 2. Findings associated with chronic small vessel ischemic disease and atrophy. Signer Name: Disha Suresh MD Signed: 10/01/2021 1:52 PM Workstation Name: [id number]
[2021-10-01] MEDS ORDERED: MAGNESIUM OXIDE 400 MG TAB PO STA (14:03)
[2021-10-01 14:46] LABS: Hepatitis B Surface Antigen Non-Reactive (Negative); Hepatitis C Virus Antibody Reactive (NonReactive)
[2021-10-01 15:25] LABS: Mucus,Urine 3+ /HPF
[2021-10-01 15:36] LABS: Bilirubin,Urine Negative (Negative); Color,Urine Dark Yellow (Yellow)
[2021-10-01 15:37] LABS: Blood,Urine Negative (Negative); Protein,Urine 300 mg/dL mg/dL (Negative)
[2021-10-01 16:11] VITALS: BP 177/95
--- NOTE | 2021-10-01 16:23 | Ultrasound Report ---
ULTRASOUND ABDOMEN, LIMITED (RIGHT UPPER QUADRANT), 10/01/2021 INDICATION: Right upper quadrant pain. COMPARISON: CT of the abdomen and pelvis, 10/01/2021 FINDINGS: Pancreas: The pancreas is not well visualized. Liver: The liver appears normal in size and echogenicity. Gallbladder: The gallbladder appears mildly distended without evidence of wall thickening or perichol ecystic fluid. There is a trace amount of echogenic sludge within the dependent portion. Bile ducts: Common Bile Duct is is enlarged measuring a maximum of 1.0 cm. Free fluid: None. Additional Findings: None. IMPRESSION: 1. Enlargement of the common bile duct without visualized obstructing stone. Review of recent CT of t he abdomen and pelvis demonstrates no evidence of radiodense obstructing stone. 2. Trace sludge within the gallbladder. Signer Name: Disha Suresh MD Signed: 10/01/2021 4:19 PM Workstation Name: [id number]
--- NOTE | 2021-10-02 09:48 | Electrocardiograph Report ---
[facility] [place] Test Date: 2021-10-01 Test Time: 11:36:41 Pat Name: MAGALIE CEBALLOS Department: Room: Gender: M Working Supervisor: RASHARD : 1945 Requested By: RORO DILLARD Order Number: [id number] Reading MD: Lalo Marquis Measurements Intervals [place] Rate: 66 P: 77 AL: 176 QRS: 62 QRSD: 86 T: 129 QT: 448 QTc: 469 Interpretive Statements Sinus rhythm Atrial premature complex Probable left atrial enlargement Abnormal T, consider ischemia, lateral leads Compared to ECG 02/14/2021 12:58:16 Atrial premature complex(es) now present T-wave abnormality now present Possible ischemia now present Ventricular premature complex(es) no longer present Electronically Signed On 10-02-2021 9:47:41 EDT by Lalo Marquis
== END 2021-10-01 16:58 | disposition home or self-care (01) ==
LOC: ED 04:29
DX: R51.9 Headache, unspecified (principal); R10.9 Unspecified abdominal pain; R74.01 Elevation of levels of liver transaminase levels; E83.42 Hypomagnesemia; K59.00 Constipation, unspecified; K75.9 Inflammatory liver disease, unspecified; I10 Essential (primary) hypertension; E11.9 Type 2 diabetes mellitus without complications; Z79.899 Other long term (current) drug therapy
CPT/HCPCS: 36415; 70450; 74019; 74176; 76705; 80053; 80074; 80320; 81001; 82550; 83735; 84443; 84484; 85025; 85610; 93005; 99284; 99285; G0480